=== PATIENT | male | born 1955 ===

== ENCOUNTER 2017-04-10 09:45 | Emergency (ER) | payer MEDICAID ==
[2017-04-10 09:50] VITALS: TEMP 98.3
[2017-04-10 09:51] VITALS: BMI 30.7
[2017-04-10] MEDS ORDERED: Naproxen 500 MG TAB PO STA (10:08)
--- NOTE | 2017-04-10 10:18 | ED PDOC ---
Lower Extremity Pain/Injury Time Seen by Provider: 04/10/17 09:50 Chief Complaint (Nursing): Lower Extremity Problem/Injury Chief Complaint (Provider): Lower Extremity Problem/Injury History Per: Patient History/Exam Limitations: no limitations Onset/Duration Of Symptoms: Hrs (morning prior to arrival ) Additional Complaint(s): Jonathon Pinon is a 61 year old male with a past medical history of asthma and hypertension presenting to the ED for an evaluation after experiencing a fall this morning prior to arrival. The patient states he fell forward sustaining an injury to his lower sternum and chest, left hand, and both knees. He denies loss of consciousness or shortness of breath, but states experiencing pain on inspiration. PMD: Gato Lamar MD Past Medical History Reviewed: Historical Data, Nursing Documentation, Vital Signs Vital Signs: Last Vital Signs Temp 98.3 F 04/10/17 09:50 Pulse 65 04/10/17 09:50 Resp 16 04/10/17 09:50 BP 156/66 H 04/10/17 09:50 Pulse Ox 98 04/10/17 09:51 - Medical History PMH: Asthma, HTN - Family History Family History: States: Unknown Family Hx - Home Medications Home Medications: Ambulatory Orders Medication Instructions Recorded traMADol [Ultram] 50 mg PO Q8 #10 tab 04/10/17 - Allergies Allergies/Adverse Reactions: Allergies Allergy/AdvReac Type Severity Reaction Status Date / Time iodine Allergy Mild RASH Verified 04/10/17 09:51 Penicillins Allergy Mild RASH Verified 04/10/17 09:51 Review of Systems ROS Statement: Except As Marked, All Systems Reviewed And Found Negative Cardiovascular: Positive for: Other (injury to lower sternum and chest ) Respiratory: Negative for: Shortness of Breath (no shortness of breath but pain on inspiration ) Musculoskeletal: Positive for: Hand Pain (injury to left hand), Leg Pain ( injury to knees bilaterally) Neurological: Negative for: Other (no loss of conciousness ) Physical Exam - Reviewed Nursing Documentation Reviewed: Yes Vital Signs Reviewed: Yes - Physical Exam Appears: Positive for: Non-toxic, No Acute Distress Head Exam: Positive for: ATRAUMATIC, NORMOCEPHALIC Cardiovascular/Chest: Positive for: Regular Rate, Rhythm, Chest Non Tender ( tenderness to lower sternum). Negative for: Murmur, Other (no crepitance or deformity ) Respiratory: Positive for: Normal Breath Sounds (equal breath sounds bilaterally ). Negative for: Respiratory Distress Gastrointestinal/Abdominal: Positive for: Normal Exam, Soft. Negative for: Tenderness Extremity: Positive for: Normal ROM (full ROM), Other (left hand abrasion and ecchymosis to 5th NCP area and abrasion to knees bilaterally) Neurologic/Psych: Positive for: Alert, Oriented (X3). Negative for: Motor/ Sensory Deficits - ECG O2 Sat by Pulse Oximetry: 98 (RA) Pulse Ox Interpretation: Normal Medical Decision Making Medical Decision Making: Time: 09:50 Impression: Injury Plan: * Chest Two Views (PA/LAT) [RAD] * Hand 2 Views LT [RAD] * Knees Bilateral [RAD] * Sternum [RAD] * Naproxen 500 mg PO * Reevaluation Scribe Attestation: Documented by Shea Rubio, acting as a scribe for Isiah Quevedo MD. Provider Scribe Attestation: All medical record entries made by the Scribe were at my direction and personally dictated by me. I have reviewed the chart and agree that the record accurately reflects my personal performance of the history, physical exam, medical decision making, and the department course for this patient. I have also personally directed, reviewed, and agree with the discharge instructions and disposition. Disposition - Clinical Impression Clinical Impression: Sternal fracture - Patient ED Disposition Is Patient to be Admitted: No Counseled Patient/Family Regarding: Studies Performed, Diagnosis, Need For Followup, Rx Given - Disposition Referrals: Gato Lamar MD [Family Provider] - Disposition: Routine/Home Disposition Time: 11:11 Condition: FAIR Prescriptions: traMADol [Ultram] 50 mg PO Q8 #10 tab Instructions: SUSPECTED FRACTURE (ED) Forms: [employer] (Indian)
[2017-04-10] MEDS ORDERED: Naproxen 500 MG TAB PO ONE (10:22)
--- NOTE | 2017-04-10 11:11 | RAD ---
PROCEDURE: X-ray of the sternum HISTORY: trauma COMPARISON: No prior similar study available for comparison. TECHNIQUE: Two views of the sternum were obtained. FINDINGS: There is mildly angulated fracture at the distal portion of the sternum. IMPRESSION: Mildly angulated acute fracture at the distal portion of the sternum.
--- NOTE | 2017-04-10 11:21 | RAD ---
HISTORY: COMPARISON: No prior. TECHNIQUE: Chest PA and lateral FINDINGS: LINES AND TUBES: None. LUNG AND PLEURA: The lungs are hyperinflated and there is peribronchial thickening with chronic changes in both lungs. No focal consolidation. HEART AND MEDIASTINUM: There is mild cardiomegaly. The hilar and mediastinal contours are within normal limits. SKELETAL STRUCTURES: There is diffuse bone demineralization and multilevel degenerative changes in the spine. VISUALIZED UPPER ABDOMEN: Normal. OTHER FINDINGS: None. IMPRESSION: No acute findings.
--- NOTE | 2017-04-10 11:22 | RAD ---
PROCEDURE: Left Hand Radiographs. HISTORY: Trauma COMPARISON: None. FINDINGS: BONES: No acute displaced fracture or bone destruction. Bone alignment is normal. There is diffuse bone demineralization. JOINTS: Normal. No osteoarthritic changes. SOFT TISSUES: Normal. OTHER FINDINGS: None. IMPRESSION: No acute displaced fracture or dislocation.
--- NOTE | 2017-04-10 11:23 | RAD ---
PROCEDURE: Bilateral Knee Radiographs. HISTORY: trauma COMPARISON: None. FINDINGS: BONES: Right Knee: Normal. No acute fracture. Bone mineralization is normal. Left Knee: Normal. No acute fracture. Bone mineralization is normal. 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 Left knee: Mild degenerative osteoarthrosis in the medial compartments with mild reduced joint space. SOFT TISSUES: Right Knee: Normal. Left Knee: Normal. JOINT EFFUSION: Right Knee: None. Left Knee: None. OTHER FINDINGS: None. IMPRESSION: No acute fracture or dislocation. 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
[2017-04-10 11:40] VITALS: BP 132/74; PULSE 78; RESP 19; O2SAT 97
== END 2017-04-10 11:42 | disposition home or self-care (01) ==
LOC: H.ER 09:45
DX: S22.20XA Unspecified fracture of sternum, initial encounter for closed fracture (principal); W19.XXXA Unspecified fall, initial encounter; Y92.89 Other specified places as the place of occurrence of the external cause; I10 Essential (primary) hypertension; Z88.0 Allergy status to penicillin